=== PATIENT | male | born 1990 | race Hispanic/Latino ===

== ENCOUNTER 2017-02-18 16:14 | Emergency (ER) | payer SELFPAY | END 2017-02-18 16:48 | disposition home or self-care (01) | LOC: NAV ERS 16:14 | DX: S61.012A Laceration without foreign body of left thumb without damage to nail, initial encounter (principal); F32.9 Major depressive disorder, single episode, unspecified; Z87.891 Personal history of nicotine dependence; W26.8XXA Contact with other sharp object(s), not elsewhere classified, initial encounter | CPT/HCPCS: 12001 ==

== ENCOUNTER 2017-02-25 06:47 | Emergency (ER) | payer SELFPAY | END 2017-02-25 07:20 | disposition home or self-care (01) | LOC: NAV ERS 06:47 | DX: H10.9 Unspecified conjunctivitis (principal); F32.9 Major depressive disorder, single episode, unspecified; F17.210 Nicotine dependence, cigarettes, uncomplicated | CPT/HCPCS: 99406 ==

== ENCOUNTER 2017-06-06 15:02 | Emergency (ER) | payer SELFPAY | END 2017-06-06 16:05 | disposition home or self-care (01) | LOC: NAV ERS 15:02 | DX: G40.909 Epilepsy, unspecified, not intractable, without status epilepticus (principal); F32.9 Major depressive disorder, single episode, unspecified; F17.290 Nicotine dependence, other tobacco product, uncomplicated; I10 Essential (primary) hypertension; Z79.899 Other long term (current) drug therapy | CPT/HCPCS: 99283 ==

== ENCOUNTER 2017-06-22 18:15 | Emergency (ER) | payer SELFPAY ==
[2017-06-22 20:05] LABS: Bilirubin Negative (Negative); Blood, Urine Small (Negative); Clarity Clear (Clear); Glucose, Urine (Dipstick) Negative (Negative); Leukocyte Negative (Negative); Nitrite Negative (Negative); Protein, Urine (Dipstick) Negative (Neg-Trace); Urobilinogen 0.2 mg/dL (0.2-1.0)
[2017-06-22 20:13] LABS: Bacteria/HPF Rare-Few HPF (None Seen); Specific Gravity, Urine 1.025 (1.002-1.036); Squamous Epithelial 0-3 HPF (0-3); WBC/HPF 0-3 HPF (0-3)
[2017-06-22 20:32] LABS: Carbamazepine-Tegretol Less than 1.9 ug/mL (4.0-12.0)
== END 2017-06-22 20:56 | disposition home or self-care (01) ==
LOC: NAV ERS 18:15
DX: R56.9 Unspecified convulsions (principal); I10 Essential (primary) hypertension; F32.9 Major depressive disorder, single episode, unspecified; F17.210 Nicotine dependence, cigarettes, uncomplicated; Z79.899 Other long term (current) drug therapy
CPT/HCPCS: 36415; 80156; 81003; 81015; 99284

== ENCOUNTER 2017-08-07 18:42 | Emergency (ER) | payer SELFPAY ==
[2017-08-07] MEDS ORDERED: Ibuprofen 800 MG TAB ONE (19:01)
[2017-08-07] MEDS ORDERED: Amoxicillin/Potassium Clav 875 MG TAB ONE (19:01)
== END 2017-08-07 19:07 | disposition home or self-care (01) ==
LOC: NAV ERS 18:42
DX: K12.2 Cellulitis and abscess of mouth (principal); I10 Essential (primary) hypertension; F41.9 Anxiety disorder, unspecified; F32.9 Major depressive disorder, single episode, unspecified; F17.290 Nicotine dependence, other tobacco product, uncomplicated; Z79.899 Other long term (current) drug therapy
CPT/HCPCS: 99283

== ENCOUNTER 2017-08-09 22:40 | Emergency (ER) | payer SELFPAY ==
[2017-08-09] MEDS ORDERED: Ketorolac Tromethamine 60 MG/2 ML VIAL ONE (22:59)
[2017-08-09] MEDS ORDERED: Dexamethasone 4 mg/ml Vial ONE (22:59)
[2017-08-09] MEDS ORDERED: cefTRIAXone\\ROCEPHIN 1 GM VIAL ONE (23:09)
[2017-08-09] MEDS ORDERED: Lidocaine 1% 20 ML MDV ONE (23:09)
== END 2017-08-09 23:35 | disposition home or self-care (01) ==
LOC: NAV ERS 22:40
DX: L03.211 Cellulitis of face (principal); I10 Essential (primary) hypertension; G40.909 Epilepsy, unspecified, not intractable, without status epilepticus; F41.9 Anxiety disorder, unspecified; F32.9 Major depressive disorder, single episode, unspecified; F17.210 Nicotine dependence, cigarettes, uncomplicated; Z79.899 Other long term (current) drug therapy
CPT/HCPCS: 96372; J0696; J1100; J1885; J2001

== ENCOUNTER 2017-10-15 06:43 | Emergency (ER) | payer SELFPAY ==
[2017-10-15] MEDS ORDERED: Bacitracin Zinc 1 Packet ONE (07:05)
--- NOTE | 2017-10-15 07:57 | RAD ---
5 VIEWS RIGHT KNEE: Date: 10/15/17 COMPARISON: None. HISTORY: Right patellar pain after tripping over a door frame on Sunday and landing on his knee. FINDINGS: Four views of the right knee show no evidence of acute fracture or dislocation. The patient is status post ACL repair. Mild degenerative changes are seen in all three compartments. IMPRESSION: Mild right knee osteoarthritis without acute osseous abnormality. POS: [facility]
== END 2017-10-15 07:55 | disposition home or self-care (01) ==
LOC: NAV ERS 06:43
DX: S80.01XA Contusion of right knee, initial encounter (principal); F32.9 Major depressive disorder, single episode, unspecified; F41.9 Anxiety disorder, unspecified; F17.290 Nicotine dependence, other tobacco product, uncomplicated; I10 Essential (primary) hypertension; Z79.899 Other long term (current) drug therapy; W01.0XXA Fall on same level from slipping, tripping and stumbling without subsequent striking against object, initial encounter

== ENCOUNTER 2020-07-02 02:52 | Emergency (ER) | payer SELFPAY ==
[2020-07-02] MEDS ORDERED: Ondansetron PF 4 MG/2 ML Vial ONE (03:09)
[2020-07-02 03:30] LABS: #Basophils 0.1 thou/uL (0.0-0.2); #Eosinphils 0.3 thou/uL (0.0-0.7); #Lymphocytes 2.7 thou/uL (1.20-3.40); #Monocytes 0.7 thou/uL (0.11-0.59); #Neutrophils 5.8 thou/uL (1.40-6.50); %Basophils 0.6 % (0.0-1.0); %Eosinophils 3.4 % (0.0-10.0); %Neutrophils 61.1 % (42.0-75.0); Hemoglobin 13.1 g/dL (14.0-18.0); Mean Corpuscular HGB CONC 30.9 g/dL (32.0-36.0); Mean Corpuscular Hemoglobin 26.9 pg (27.0-31.0); Mean Corpuscular Volume 87.1 fL (78.0-98.0); Mean Platelet Volume 7.4 fL (7.4-10.4); Platelet Count 374 thou/uL (130-400); RBC Distribution Width 12.8 % (11.5-14.5); Red Blood Cell (RBC) Count 4.89 mill/uL (4.70-6.10); White Blood Cell (WBC) Count 9.5 thou/uL (4.8-10.8)
[2020-07-02 03:37] LABS: Bilirubin Negative (Negative); Blood, Urine Small (Negative); Clarity Clear (Clear); Glucose, Urine (Dipstick) Negative (Negative); Ketone, Urine Negative (Negative); Leukocyte Negative (Negative); Nitrite Negative (Negative); Protein, Urine (Dipstick) Trace mg/dL (Neg-Trace); Specific Gravity, Urine 1.025 (1.005-1.030); Urobilinogen 0.2 mg/dL (Less than 2)
[2020-07-02 03:40] LABS: Bacteria/HPF None Seen HPF (None Seen); RBC/HPF 0-3 HPF (0-3); Squamous Epithelial None Seen HPF (0-3); WBC/HPF None Seen HPF (0-3)
[2020-07-02 03:47] LABS: ALT (SGPT) 62 U/L (8-55); AST (SGOT) 38 U/L (5-34); Albumin 4.1 g/dL (3.5-5.0); Alkaline Phosphatase 63 U/L (40-110); Anion Gap 14 mmol/L (10-20); BUN (Urea Nitrogen) 21 mg/dL (8.9-20.6); Bilirubin, Total 0.2 mg/dL (0.2-1.2); Calc. Creatinine Clearance 0 mL/min (70-130); Calcium 8.9 mg/dL (7.8-10.44); Carbon Dioxide 21 mmol/L (22-29); Chloride 108 mmol/L (98-107); Globulin 2.5 g/dL (2.4-3.5); Glucose 110 mg/dL (70-105); Lipase 40 U/L (8-78); Potassium 3.7 mmol/L (3.5-5.1); Protein, Total 6.6 g/dL (6.0-8.3); Sodium 139 mmol/L (136-145)
== END 2020-07-02 04:03 | disposition home or self-care (01) ==
LOC: NAV ERS 02:52
DX: R11.2 Nausea with vomiting, unspecified (principal); R19.7 Diarrhea, unspecified; I10 Essential (primary) hypertension; R56.9 Unspecified convulsions; Z87.891 Personal history of nicotine dependence; Z79.899 Other long term (current) drug therapy
CPT/HCPCS: 80053; 81003; 81015; 83690; 83735; 85025; 93005; 96374; J2405

== ENCOUNTER 2024-05-16 06:49 | Emergency (ER) | payer SELFPAY | END 2024-05-16 07:20 | disposition home or self-care (01) | LOC: NAV ERS 06:49 | DX: Z02.79 Encounter for issue of other medical certificate (principal); G40.409 Other generalized epilepsy and epileptic syndromes, not intractable, without status epilepticus; I10 Essential (primary) hypertension | CPT/HCPCS: 99283 ==

== ENCOUNTER 2024-05-17 18:19 | Emergency (ER) | payer SELFPAY ==
[2024-05-17] MEDS ORDERED: Lidocaine 1% (PF) 30 ML VIAL ONE (19:00)
[2024-05-17] MEDS ORDERED: Boostrix 0.5 ML (Tdap) VIAL (>/=7 yrs of age) ONE (19:31)
== END 2024-05-17 19:40 | disposition home or self-care (01) ==
LOC: NAV ERS 18:19
DX: S61.411A Laceration without foreign body of right hand, initial encounter (principal); S61.511A Laceration without foreign body of right wrist, initial encounter; S51.811A Laceration without foreign body of right forearm, initial encounter; I10 Essential (primary) hypertension; Z23 Encounter for immunization; W25.XXXA Contact with sharp glass, initial encounter
CPT/HCPCS: 12002; 90471; 90715

== ENCOUNTER 2024-11-25 14:06 | Emergency (ER) | payer BC, SELFPAY ==
[2024-11-25 14:37] LABS: #Basophils 0.2 thou/uL (0.0-0.2); #Eosinophils 0.3 thou/uL (0.0-0.7); #Lymphocytes 2.2 thou/uL (1.20-3.40); #Monocytes 0.6 thou/uL (0.11-0.59); #Neutrophils 6.9 thou/uL (1.40-6.50); %Basophils 1.5 % (0.0-1.0); %Eosinophils 2.9 % (0.0-10.0); %Lymphocytes 21.5 % (21.0-51.0); %Monocytes 5.6 % (0.0-10.0); %Neutrophils 68.5 % (42.0-75.0); Hematocrit 43.0 % (42.0-52.0); Hemoglobin 14.6 g/dL (14.0-18.0); Mean Corpuscular Hemoglobin 27.4 pg (27.0-31.0); Mean Corpuscular Volume 80.9 fl (78.0-98.0); Platelet Count 386 10x3/uL (130-400); Red Blood Cell (RBC) Count 5.32 mill/uL (4.70-6.10); White Blood Cell (WBC) Count 10.0 10x3/uL (4.8-10.8)
[2024-11-25 14:55] LABS: ALT (SGPT) 16 U/L (Less than 45); AST (SGOT) 20 U/L (11-34); Albumin 4.4 g/dL (3.1-4.5); Alkaline Phosphatase 55 U/L (40-110); Anion Gap 16 mmol/L (10-20); BUN (Urea Nitrogen) 13 mg/dL (8.9-20.6); Bilirubin, Total 0.4 mg/dL (0.3-1.2); Calc. Creatinine Clearance 0 mL/min (70-130); Calcium 9.3 mg/dL (7.8-10.44); Carbon Dioxide 21 mmol/L (22-29); Chloride 108 mmol/L (98-107); Globulin 3.3 g/dL (2.4-3.5); Glucose 84 mg/dL (70-105); Lipase 26 U/L (8-78); Potassium 3.9 mmol/L (3.5-5.1); Sodium 141 mmol/L (136-145)
[2024-11-25 14:56] LABS: Troponin I Less than 0.010 ng/mL (< 0.028)
[2024-11-25 18:06] LABS: Troponin I Less than 0.010 ng/mL (< 0.028)
== END 2024-11-25 18:46 | disposition home or self-care (01) ==
LOC: NAV ERS 14:06
DX: R07.9 Chest pain, unspecified (principal); I10 Essential (primary) hypertension
CPT/HCPCS: 71045; 80053; 83690; 84484; 85025; 85379; 93005; 94760